=== PATIENT | female | born 1965 | race American Indian/Alaskan Native ===

== ENCOUNTER 2016-11-15 11:13 | Emergency (ER) | payer OTHER ==
[2016-11-15 11:33] VITALS: BP 193/97
[2016-11-15] MEDS ORDERED: TORADOL IM ONE (13:23)
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
== END 2016-11-15 14:24 | disposition home or self-care (01) ==
LOC: ED 11:13
DX: I10 Essential (primary) hypertension (principal); M54.5 Low back pain; W18.30XA Fall on same level, unspecified, initial encounter; Y93.89 Activity, other specified; Y99.9 Unspecified external cause status; Y92.89 Other specified places as the place of occurrence of the external cause
CPT/HCPCS: 96372; 99282; J1885

== ENCOUNTER 2017-12-15 10:23 | Day surgery (SDC) | payer OTHER ==
[2017-12-15] MEDS ORDERED: NACL 0.9% 1000 ML 1,000 ML IV SCH (12:00)
--- NOTE | 2017-12-15 13:06 | Anesthesia Consultation ---
Anesthesia Consult and Med Hx Date of service: 12/15/17 - Airway Anesthetic Teeth Evaluation: Partials ROM Head & Neck: Adequate Mental/Hyoid Distance: Adequate Mallampati Class: Class I Intubation Access Assessment: Good - Pulmonary Exam CTA: Yes - Cardiac Exam Cardiac Exam: RRR - Pre-Operative Health Status ASA Pre-Surgery Classification: ASA2 Proposed Anesthetic Plan: MAC - Cardiovascular System Hx Hypertension: Yes
--- NOTE | 2017-12-15 13:06 | Anesthesia Day of Surgery ---
Anesthesia Day of Surgery - Day of Surgery Patient Examined: Yes Patient H&P Reviewed: Yes Patient is NPO: Yes
[2017-12-15] MEDS ORDERED: DIPRIVAN 10 MG/ML IV ONE ×2 (13:41)
--- NOTE | 2017-12-15 16:00 | Operative Report ---
Operative Report Operative Report: Date of procedure: 12/15/2017 Procedure: Colonoscopy with Hot Biopsy Polypectomy. Attending physician: Tej Lino MD Rouge Sifter And Miller: Tej Lino MD Indication: Patient is a 52-year-old female who presents for screening colonoscopy. She also has a history of rectal bleeding/ blood in stool. A colonoscopy serves to evaluate patient for colorectal cancer screening. Consent: Informed consent was obtained after advising the patient and family regarding nature of this procedure, its indications, potential benefits as well as possible complications including but not limited to bleeding perforation and adverse reaction to medication, infection as well as other cardiopulmonary complications. An informed written and verbal consent was then obtained after due opportunity was provided for questions and answers. Monitoring: Patient was monitored continuously with pulse oximetry and electrocardiographic recordings as well as blood pressure recordings. Vital signs remained stable throughout this procedure with no untoward events. Preoperative assessment: Patient was assessed immediately prior to this procedure for capacity to tolerate monitored anesthesia care and moderate sedation as well as general anesthesia. Patient's ASA classification is 2, Mallampati class is 2, Hyomental distance is 3. Instrument: [employer] video colonoscope Medications: Propofol given intravenously in divided doses. For details please refer to anesthesia records. Description of procedure: Patient was placed in the left lateral decubitus position after achieving sedation, a digital rectal examination was performed following which the colonoscope was introduced into the anal verge and advanced to the cecum which was identified by the cecal valve, the appendiceal orifice, as well as by the cecal strap and direct transillumination. The colonoscope was subsequently withdrawn with careful inspection of all mucosal surfaces. Patient tolerated this procedure well and was subsequently taken to the recovery room. The following findings were noted. Findings: Patient had scattered diverticula involving all segments of the colon. Patient had 2 diminutive flat polyps in the sigmoid colon measuring about 4-5 mm, which were removed by hot biopsy polypectomy. On the retroflex view at the anal verge, patient had large prominent internal hemorrhoids. Impression: Diminutive sigmoid colon polyps status post hot biopsy polypectomy. Mild diverticulosis. Prominent Internal hemorrhoids. Plan: High-fiber diet. Repeat colonoscopy in 5 years if the polyps are adenomatous. Patient will likely benefit from hemorrhoidal band ligation
--- NOTE | 2017-12-15 16:01 | Discharge Summary ---
Short Stay Discharge Plan Activity: advance as tolerated Weight Bearing Status: Weight Bear as Tolerated Diet: regular Additional Instructions: Post Sedation D/C Instructions When you return home you may resume your regular diet unless otherwise directed. -Go directly home from the hospital and rest quietly. You may resume normal activities tomorrow. -Do NOT drive, return to work, operate any machinery or make any important personal or business decisions today. -Do NOT drink any alcohol or take nerve or sleeping drugs. They add to the effects of the medicine still present in your body. Follow up with: SONY ROYAL MD [Primary Care Provider] - 7 Days
[2017-12-15 16:36] VITALS: BP 130/79
== END 2017-12-15 10:24 | disposition home or self-care (01) ==
LOC: GIO 10:23
PROVIDERS: ATTEND Internal Medicine Gastroenterology
DX: K57.30 Diverticulosis of large intestine without perforation or abscess without bleeding (principal); K64.8 Other hemorrhoids; I10 Essential (primary) hypertension; Z98.890 Other specified postprocedural states; Z90.710 Acquired absence of both cervix and uterus
CPT/HCPCS: 45380; 88305; J2704; J7030